=== PATIENT | male | born 1960 | race Hispanic/Latino ===

== ENCOUNTER 2019-03-15 10:52 | Emergency (ER) | payer OTHER ==
[2019-03-15] MEDS ORDERED: TETANUS & DIPHTHERIA TOX,ADULT 0.5 ML VIAL ONE (11:15)
[2019-03-15] MEDS ORDERED: HYDROCODONE/APAP 10/325 TAB ONE (11:43)
--- NOTE | 2019-03-15 11:47 | RAD REPORT ---
EXAM DESCRIPTION: RAD - Hand Left 2 View - 03/15/2019 11:29 am CLINICAL HISTORY: PAIN COMPARISON: No comparisons FINDINGS: Soft tissue and bony amputation of the distal aspect of the third finger is seen with expo sed bone. No additional fracture seen.
[2019-03-15] MEDS ORDERED: LIDOCAINE 1% MPF 5 ML VIAL ONE (12:40)
[2019-03-15] MEDS ORDERED: BUPIVACAINE 0.5% PF 10 ML VIAL ONE (12:43)
--- NOTE | 2019-03-15 15:00 | EDPHYS ---
Physician Documentation [facility] Name: Aquiles Hampton Age: 59 yrs Sex: Male : 1960 Arrival Date: 03/15/2019 Time: 10:54 Bed 12 Private MD: ED Physician Michael Duncan HPI: 03/15 13:09 This 59 yrs old Male presents to ER via Ambulatory with complaints of finger kb laceration. 13:10 The patient or guardian reports injury, pain, left middle finger tip amputation. The kb complaints affect the dorsal aspect of distal phalanx of left middle finger. Context: resulted from caught between two pipes. Onset: The symptoms/episode began/occurred just prior to arrival. Modifying factors: The symptoms are alleviated by nothing, the symptoms are aggravated by nothing. Associated signs and symptoms: The patient has no apparent associated signs or symptoms. Severity of symptoms: At their worst the symptoms were moderate, in the emergency department the symptoms are unchanged. The patient has not experienced similar symptoms in the past. The patient has not recently seen a physician. Pt reports he got his finger smashed between 2 pipes while working today. Historical: - Allergies: 11:23 No Known Allergies; iw - Home Meds: 11:23 None [Active]; iw - PMHx: 11:23 None; iw - PSHx: 11:23 None; iw - Immunization history:: Adult Immunizations not up to date. - Social history:: Smoking status: . - Ebola Screening: : Patient negative for fever greater than or equal to 101.5 degrees Fahrenheit, and additional compatible Ebola Virus Disease symptoms Patient denies exposure to infectious person Patient denies travel to an Ebola-affected area in the 21 days before illness onset No symptoms or risks identified at this time. ROS: 12:34 Constitutional: Negative for fever, chills, and weight loss, Cardiovascular: Negative kb for chest pain, palpitations, and edema, Respiratory: Negative for shortness of breath, cough, wheezing, and pleuritic chest pain, Abdomen/GI: Negative for abdominal pain, nausea, vomiting, diarrhea, and constipation, Back: Negative for injury and pain, MS/Extremity: Negative for injury and deformity, Neuro: Negative for headache, weakness, numbness, tingling, and seizure. 12:34 Skin: Positive for amputation of distal tip of left middle finger. Exam: 12:29 Constitutional: This is a well developed, well nourished patient who is awake, alert, kb and in no acute distress. Head/Face: Normocephalic, atraumatic. Chest/axilla: Normal chest wall appearance and motion. Nontender with no deformity. No lesions are appreciated. Cardiovascular: Regular rate and rhythm with a normal S1 and S2. No gallops, murmurs, or rubs. Normal PMI, no JVD. No pulse deficits. Respiratory: Lungs have equal breath sounds bilaterally, clear to auscultation and percussion. No rales, rhonchi or wheezes noted. No increased work of breathing, no retractions or nasal flaring. Abdomen/GI: Soft, non-tender, with normal bowel sounds. No distension or tympany. No guarding or rebound. No evidence of tenderness throughout. MS/ Extremity: Pulses equal, no cyanosis. Neurovascular intact. Full, normal range of motion. Neuro: Awake and alert, GCS 15, oriented to person, place, time, and situation. Cranial nerves II-XII grossly intact. Motor strength 5/5 in all extremities. Sensory grossly intact. Cerebellar exam normal. Normal gait. 12:29 Skin: injury, avulsion(s), A moderate sized of the dorsal aspect of distal phalanx of left middle finger. Vital Signs: 11:23 BP 125 / 87; Pulse 80; Resp 16; Temp 98.2; Pulse Ox 100% ; Weight 63.5 kg; Height 5 ft. iw 8 in. (172.72 cm); Pain 8/10; 11:23 Body Mass Index 21.29 (63.50 kg, 172.72 cm) iw Procedures: 13:01 Nerve block: (digital) of palmar aspect of proximal phalanx of left middle finger kb Medication: Lidocaine 1% with epinephrine, Marcaine 0.5%, Amount: 5 mls were injected, Effect: the patient has resolution of the pain, Set up for procedure. Performed by Sherron MOON Patient tolerated well. MDM: 11:00 Patient medically screened. kb 12:01 Data reviewed: vital signs, nurses notes. Data interpreted: Pulse oximetry: on room air kb is 100 %. Interpretation: normal. Physician consultation: Vel Diop MD was contacted at 12:01, regarding consult, patient's condition. 14:56 Counseling: I had a detailed discussion with the patient and/or guardian regarding: the kb historical points, exam findings, and any diagnostic results supporting the discharge/admit diagnosis, radiology results, the need for outpatient follow up, a hand specialist, to return to the emergency department if symptoms worsen or persist or if there are any questions or concerns that arise at home. 14:57 ED course: Called Dr Gumaro Rutherford for consult. Pt to be discharged from ER and go to [facility]. Will keep pt NPO and pt is to go straight there and let them know he is a handoff pt for Dr Rutherford. They are expecting pt. Pt and safety educated and gave verbal understanding of instructions. 03/15 11:04 Order name: Hand Left 2 View XRAY; Complete Time: 11:48 kb 03/15 13:08 Order name: Wound Care: clean and dress; Complete Time: 13:37 kb Administered Medications: 11:20 Drug: Tetanus-Diphtheria Toxoid Adult 0.5 ml {[employer]: [employer]. Exp: 10/30/2020. Lot #: [id number]. } Route: IM; Site: right deltoid; 11:45 Drug: [place] 10 mg-325 mg 1 tabs {Note: RASS:0.} Route: PO; 13:00 Drug: Lidocaine (1 %) 1 vials Volume: 5 ml; Route: Infiltration; 13:00 Drug: Marcaine (0.5 %) 1 vials Volume: 10 ml; Route: Infiltration; Disposition: 15:41 Co-signature as Attending Physician, Michael Duncan MD. rn Disposition: 03/15/19 14:57 Discharged to Home. Impression: Amputation of tip of left middle finger. - Condition is Stable. - Discharge Instructions: Traumatic Finger Amputation. - Medication Reconciliation Form, Thank You Letter, Antibiotic Education, Prescription Opioid Use form. - Follow up: Emergency Department; When: As needed; Reason: Worsening of condition. Follow up: Private Physician; When: 2 - 3 days; Reason: Recheck today's complaints, Continuance of care, Re-evaluation by your physician. - Notes: Follow up with Dr Rutherford upon discharge from ED as instructed Signatures: Dispatcher [employer] Sherron Morton, AROMATHERAPIST-C AROMATHERAPIST-Amada Bassett, RN RN iw Michael Duncan MD MD metal furnace operator: (The following items were deleted from the chart) 15:02 14:57 03/15/2019 14:57 Discharged to Home. Impression: Amputation of tip of left middle iw finger. Condition is Stable. Forms are Medication Reconciliation Form, Thank You Letter, Antibiotic Education, Prescription Opioid Use. Follow up: Emergency Department; When: As needed; Reason: Worsening of condition. Follow up: Private Physician; When: 2 - 3 days; Reason: Recheck today's complaints, Continuance of care, Re-evaluation by your physician. kb 15:06 14:57 ED course: Called Dr Gumaro Rutherford for consult. Pt to be discharged from ER and go kb to [facility]. Will keep pt NPO. kb
--- NOTE | 2019-03-15 15:00 | ER ---
Nurse's Notes [facility] Name: Aquiles Hampton Age: 59 yrs Sex: Male : 1960 Arrival Date: 03/15/2019 Time: 10:54 Bed 12 Private MD: Diagnosis: Amputation of tip of left middle finger Presentation: 03/15 11:00 Presenting complaint: Patient states: left middle finger got caught between two steel iw pipes, avulsion of tip of left middle finger. Transition of care: patient was not received from another setting of care. Onset of symptoms was March 15, 2019. Risk Assessment: Do you want to hurt yourself or someone else? Patient reports no desire to harm self or others. Initial Sepsis Screen: Does the patient meet any 2 criteria? No. Patient's initial sepsis screen is negative. Does the patient have a suspected source of infection? No. Patient's initial sepsis screen is negative. Care prior to arrival: Bleeding of injury controlled. 11:00 Method Of Arrival: Ambulatory iw 11:00 Acuity: LUIS ANTONIO 4 iw Historical: - Allergies: 11:23 No Known Allergies; iw - Home Meds: 11:23 None [Active]; iw - PMHx: 11:23 None; iw - PSHx: 11:23 None; iw - Immunization history:: Adult Immunizations not up to date. - Social history:: Smoking status: . - Ebola Screening: : Patient negative for fever greater than or equal to 101.5 degrees Fahrenheit, and additional compatible Ebola Virus Disease symptoms Patient denies exposure to infectious person Patient denies travel to an Ebola-affected area in the 21 days before illness onset No symptoms or risks identified at this time. Screenin:56 Abuse screen: Denies threats or abuse. Denies injuries from another. Nutritional iw screening: No deficits noted. Tuberculosis screening: No symptoms or risk factors identified. Fall Risk None identified. Assessment: 11:10 General: Appears in no apparent distress. Behavior is calm. Pain: Complains of pain in iw dorsal aspect of distal phalanx of left middle finger. Neuro: Level of Consciousness is awake, alert, obeys commands, Oriented to person, place, time, situation. Cardiovascular: Patient's skin is warm and dry. Respiratory: Respiratory effort is even, unlabored, Respiratory pattern is regular. Derm: Skin is intact, is healthy with good turgor. Musculoskeletal: Injury Description: Avulsion sustained to dorsal aspect of distal phalanx of left middle finger and left middle fingernail is complete was sustained 30-60 minutes ago. 11:55 Reassessment: Patient appears in no apparent distress at this time. Patient and/or iw family updated on plan of care and expected duration. Pain level reassessed. Patient is alert, oriented x 3, equal unlabored respirations, skin warm/dry/pink. 14:11 Reassessment: Patient appears in no apparent distress at this time. Patient and/or iw family updated on plan of care and expected duration. Pain level reassessed. Patient is alert, oriented x 3, equal unlabored respirations, skin warm/dry/pink. awaiting call back from Dr. Diop. Vital Signs: 11:23 BP 125 / 87; Pulse 80; Resp 16; Temp 98.2; Pulse Ox 100% ; Weight 63.5 kg; Height 5 ft. iw 8 in. (172.72 cm); Pain 8/10; 11:23 Body Mass Index 21.29 (63.50 kg, 172.72 cm) iw ED Course: 10:54 Patient arrived in ED. mr 10:59 Sherron Ga, [facility] kb 10:59 Michael Duncan MD is Attending Physician. kb 11:00 Patient has correct armband on for positive identification. iw 11:00 Arm band placed on. iw 11:13 Amada Reyes, RN is Primary Nurse. iw 11:23 Triage completed. iw 11:31 Hand Left 2 View XRAY In Process Unspecified. EDMS 15:02 No provider procedures requiring assistance completed. Patient did not have IV access iw during this emergency room visit. Administered Medications: 11:20 Drug: Tetanus-Diphtheria Toxoid Adult 0.5 ml {[employer]: [employer]. Exp: iw 10/30/2020. Lot #: [id number]. } Route: IM; Site: right deltoid; 11:45 Drug: [place] 10 mg-325 mg 1 tabs {Note: RASS:0.} Route: PO; iw 13:00 Drug: Lidocaine (1 %) 1 vials Volume: 5 ml; Route: Infiltration; iw 13:00 Drug: Marcaine (0.5 %) 1 vials Volume: 10 ml; Route: Infiltration; iw Outcome: 14:57 Discharge ordered by MD. kat 15:01 Discharged to [facility], pt is a "Hand-off" patient, will be seen by kylie Akbar iw specialist 15:01 Condition: good 15:01 Discharge instructions given to patient, friend, Instructed on discharge instructions, follow up and referral plans. Demonstrated understanding of instructions, follow-up care. 15:02 Patient left the ED. iw Signatures: Dispatcher [employer] EDSherron Gabriel, LOIS-Malathi VELAZQUEZP-Jasmyn Guidry mr Amada Reyes, RN RN iw
== END 2019-03-15 15:02 | disposition home or self-care (01) ==
LOC: ER 10:52
DX: S68.123A Partial traumatic metacarpophalangeal amputation of left middle finger, initial encounter (principal); W23.0XXA Caught, crushed, jammed, or pinched between moving objects, initial encounter; Y93.9 Activity, unspecified; Y92.89 Other specified places as the place of occurrence of the external cause; Y99.8 Other external cause status; Z23 Encounter for immunization
CPT/HCPCS: 64450; 90471; 90714; 99283